=== PATIENT | female | born 1985 | race Two or more races ===

== ENCOUNTER 2016-12-06 17:21 | Observation (INO) | payer SELFPAY ==
[2016-12-06] MEDS ORDERED: IV RINGERS,LACTATED 1000ML 1,000 ML IV SCH ×2 (18:23)
[2016-12-10] MEDS ORDERED: NAPR500T PO (07:59)
[2016-12-10] MEDS ORDERED: HYDR-971 PO (07:59)
== END 2016-12-06 18:45 | disposition home or self-care (01) ==
LOC: 3 SO LND 17:21
PROVIDERS: ADMIT Obstetrics & Gynecology; ATTEND Obstetrics & Gynecology
DX: O26.893 Other specified pregnancy related conditions, third trimester (principal); N89.8 Other specified noninflammatory disorders of vagina; O62.9 Abnormality of forces of labor, unspecified; Z3A.39 39 weeks gestation of pregnancy
CPT/HCPCS: G0378; G0379

== ENCOUNTER 2016-12-08 01:59 | Inpatient (IN) | payer SELFPAY ==
[~2016-12-08] VITALS: Ht 144.8 cm; Wt 79.8 kg
[2016-12-08] MEDS ORDERED: ONDANSETRON PF 4 MG/2 ML VIAL. IV PRN ×2 (02:15→04:00)
[2016-12-08] MEDS ORDERED: 0.9 % SODIUM CHLORIDE 10 ML DISP.SYRIN. IV PRN ×2 (02:15→07:00)
[2016-12-08] MEDS ORDERED: OXYTOCIN 30 UNIT/500 ML PREMIX 500 ML IV PRN ×2 (02:15→07:00)
[2016-12-08] MEDS ORDERED: FENTANYL PF 100 MCG/2 ML VIAL. IV PRN (02:15)
[2016-12-08] MEDS ORDERED: LIDOCAINE 1% PF 30 ML VIAL. INJ PRN (02:15)
[2016-12-08] MEDS ORDERED: TERBUTALINE 1 MG/ML VIAL. SQ PRN (02:15)
[2016-12-08] MEDS: IV RINGERS,LACTATED 1000ML 1,000 ML IV SCH ×2 (02:41→04:22)
[2016-12-08 02:56] LABS: HEMOGLOBIN 12.1 g/dL (12.0-15.5); RED BLOOD COUNT 4.36 x10^6/uL (3.50-5.40); RED CELL DISTRIBUTION WIDTH 13.8 % (11.5-14.5)
[2016-12-08 03:03] VITALS: BP 119/76
[2016-12-08] MEDS ORDERED: L&D EPIDURAL CASSETTE 100 ML EP ONE (03:34)
[2016-12-08] MEDS ORDERED: ROPIVacaine 0.2% IN 0.9%NACL PF 40 MG/20 ML DISP.SYRIN. ONE (03:34)
[2016-12-08] MEDS ORDERED: NALOXONE 0.4 MG/ML VIAL. IV PRN (04:00)
[2016-12-08] MEDS ORDERED: EPHEDRINE PF IN SALINE 50 MG/5 ML DISP.SYRIN. IV PRN (04:00)
[2016-12-08] MEDS ORDERED: FENTANYL PF 100 MCG/2 ML VIAL. EPI ONE (04:30)
[2016-12-08] MEDS ORDERED: ROPIVacaine 0.2% PF 10 ML VIAL. EPI ONE (04:30)
--- NOTE | 2016-12-08 04:33 | PDOC1 ---
OB - History Hx of Present Care: Good Care Ultrasounds: Normal mid trimester US Obstetrical Complications: None Medical Complications: None Past Family/Social History * Past Medical, Surgical, Family and Obstetric Histories reviewed from chart. Rubella: Immune RPR/VDRL: Negative GBS Status: Negative HBsAG: Negative OB - Chief Complaint & HPI Date of Admission: Date of Admission: Dec 08, 2016 at 01:59 Chief Complaint/History : 3 Para: 2 EGA: 40 Reason for admission: active labor Admission Nurse Assessment Rev: Yes Problems: OB - Admission Exam Physical Exam Vitals: VS - Last 72 Hours, by Label Date Time Temp Pulse Resp B/P Pulse Ox O2 Delivery O2 Flow Rate FiO2 12/08/16 03:55 18 Room Air 12/08/16 03:03 98.0 67 20 119/76 Room Air 98.0 HEENT: Normal Heart: Regular Rate Lungs: Clear Abdomen: Gravid, Non tender, Soft Extremities: Edema Reflexes: Normal Cervical Dilatation: 4cm Effacement: 75% Station: -2 Membranes: Intact Heart Rate: Normal Accelerations: Accelerations Present Decelerations: No decelerations Contractions on Admission: 6-10 Minutes Apart Intensity: Moderate Text A: 40 wks IUP Active labor P: Admit for labor management. RAHUL VIEIRA Jr, MD Dec 08, 2016 04:33
[2016-12-08] MEDS ORDERED: ACETAMINOPHEN 325 MG TABLET. PO PRN (07:00)
[2016-12-08] MEDS ORDERED: SIMETHICONE 80 MG TAB.CHEW PO PRN (07:00)
[2016-12-08] MEDS ORDERED: PHENYLEPH/MINERAL OIL/PETROLAT RECTAL OINTMENT 28GM TUBE. RC PRN (07:00)
[2016-12-08] MEDS ORDERED: MAG HYDROX/ALUMINUM HYDROX/SMC 30 ML ORAL.SUSP PO PRN (07:00)
[2016-12-08] MEDS ORDERED: MAGNESIUM HYDROXIDE 2,400 MG/30 ML ORAL.SUSP. PO PRN (07:00)
[2016-12-08] MEDS ORDERED: ZOLPIDEM 5 MG TABLET. PO PRN (07:00)
[2016-12-08] MEDS ORDERED: BENZOCAINE 20% TOPICAL AEROSOL SPRAY 57GM CAN. TP PRN (07:00)
[2016-12-08] MEDS ORDERED: DIPHENHYDRAMINE HCL 25 MG CAPSULE PO PRN (07:00)
[2016-12-08] MEDS ORDERED: HYDROCORTISONE 1% TOPICAL OINTMENT 30GM TUBE. TP PRN (07:00)
[2016-12-08] MEDS ORDERED: FERROUS SULFATE 325 MG TABLET PO SCH (08:00)
[2016-12-08 09:55] VITALS: BP 97/56
[2016-12-08 10:55] VITALS: BP 97/55
[2016-12-08] MEDS ORDERED: PNV1TABL25 PO (13:44)
[2016-12-08] MEDS: IBUPROFEN 800 MG TABLET. PO SCH (15:06)
[2016-12-08 15:30] VITALS: BP 99/56
[2016-12-08] MEDS: HYDROCODONE/APAP 5/325MG TABLET. PO PRN (21:12)
[2016-12-08 23:10] VITALS: BP 100/58
[2016-12-09 02:02] VITALS: BP 119/74
[2016-12-09] MEDS: IBUPROFEN 600 MG TABLET. PO PRN (05:11)
[2016-12-09] MEDS: HYDROCODONE/APAP 5/325MG TABLET. PO PRN ×2 (05:11→21:43)
[2016-12-09 06:20] VITALS: BP 112/65
[2016-12-09 11:28] VITALS: BP 109/67
--- NOTE | 2016-12-09 13:24 | PDOC ---
OB Progress Note Date of Service 12/09/16 Time of Evaluation 1320 Notes PT. feeling well. No complaints. Lab Laboratory Tests Test 12/08/16 02:40 12/09/16 04:12 White Blood Count 12.0x10^3/uL (4.0-11.0) Red Blood Count 4.36x10^6/uL (3.50-5.40) Hemoglobin 12.1g/dL (12.0-15.5) Hematocrit 37.0% (36.0-47.0) 33.3% (36.0-47.0) Mean Corpuscular Volume 85fL (79-100) Mean Corpuscular Hemoglobin 28pg (25-35) Mean Corpuscular Hemoglobin Concent 33g/dL (31-37) Red Cell Distribution Width 13.8% (11.5-14.5) Platelet Count 252x10^3/uL (140-400) RPR Titer Additional Testing Non reactive (Non Reactive) Laboratory Tests Test 12/09/16 04:12 Hematocrit 33.3% (36.0-47.0) Medications Current Medications Sodium Chloride 3 ml 3 ml QSHIFT PRN IV AFTER MEDS AND BLOOD DRAWS; Start 12/08 at 02:15; Stop 12/08/16 at 08:11; Status DC Lactated Ringer's (Iv Lactated Ringers) 1,000 ml @ 125 mls/hr Q8H IV Last administered on 12/08/16t 04:22; Start 12/08/16 at 02:09 Fentanyl Citrate (Fentanyl 2ml Vial) 100 mcg PRN Q30MIN PRN IV Severe pain; Start 12/08/16 at 02:15; Stop 12/08/16 at 08:11; Status DC Ondansetron HCl (Zofran) 4 mg PRN Q4HRS PRN IV NAUSEA/VOMITING; Start 12/08/16 at 02:15; Stop 12/08/16 at 08:11; Status DC Terbutaline Sulfate (Brethine) 0.25 mg 1X PRN PRN SQ SEE COMMENTS; Start at 02:15; Stop 12/08/16 at 08:11; Status DC Lidocaine HCl 30 ml 30 ml 1X PRN PRN INJ SEE COMMENTS; Start 12/08/16 at 02:15 ; Stop 12/08/16 at 08:11; Status DC Oxytocin/Sodium Chloride (Oxytocin Premix Infusion) 500 ml @ 0 mls/hr CONT PRN PRN IV Post delivery bleeding Last administered on 12/08/16 06:27; Start at 02:15 Ibuprofen 600 mg 600 mg PRN Q6HRS PRN PO MODERATE PAIN Last administered on 05:11; Start 12/08/16 at 02:15 Ropivacaine/ Fentanyl/NS (Ouwsrmhy-Ttjmh-QH 3 Mcg-0.1%) 100 ml @ As Directed STK-MED ONCE EP Last administered on 12/08/16 03:55; Start 12/08/16 at 03:34; Stop 12/08/16 at 08:11; Status DC Ropivacaine 40 mg STK-MED ONCE .ROUTE Last administered on 12/08/16 03:55; Start 12/08/16 at 03:34; Stop 12/08/16 at 08:11; Status DC Ephedrine Sulfate 10 mg PRN Q2MIN PRN IV IF SBP<90; Start 12/08/16 at 04:00; Stop 12/08/16 at 08:11; Status DC Naloxone HCl (Narcan) 0.04 mg PRN Q1MIN PRN IV SEE COMMENTS; Start 12/08/16 at 04:00; Stop 12/08/16 at 08:11; Status DC Fentanyl Citrate (Fentanyl 2ml Vial) 100 mcg 1X ONCE EPI ; Start 12/08/16 at 04 :30; Stop 12/08/16 at 08:11; Status DC Ondansetron HCl (Zofran) 4 mg PRN Q6HRS PRN IV NAUSEA/VOMITING; Start 12/08/16 at 04:00 Ropivacaine (Naropin 0.2%) 20 ml 1X ONCE EPI ; Start 12/08/16 at 04:30; Stop at 08:11; Status DC Sodium Chloride 10 ml 10 ml QSHIFT PRN IV AFTER MEDS AND BLOOD DRAWS; Start at 07:00 Oxytocin/Sodium Chloride (Oxytocin Premix Infusion) 500 ml @ 62.5 mls/hr CONT PRN IV SEE I/O RECORD; Start 12/08/16 at 07:00; Stop 12/08/16 at 14:59; Status DC Acetaminophen (Tylenol) 650 mg PRN Q6HRS PRN PO MILD PAIN / TEMP; Start at 07:00 Ibuprofen (Motrin) 800 mg Q8HRS PO Last administered on 12/08/16 15:06; Start 12/08/16 at 14:00 Magnesium Hydroxide (Milk Of Magnesia) 2,400 mg PRN DAILY PRN PO CONSTIPATION; Start 12/08/16 at 07:00 Al Hydrox/Mg Hydrox/Simethicone (Mylanta Plus Xs) 30 ml PRN Q4HRS PRN PO HEARTBURN / GAS; Start 12/08/16 at 07:00 Simethicone (Gas-X) 80 mg PRN AFTMEALHC PRN PO GAS / BLOATING; Start 12/08/16 at 07:00 Diphenhydramine HCl (Benadryl) 25 mg PRN Q6HRS PRN PO ITCHING Last administered on 12/08/16 07:36; Start 12/08/16 at 07:00 Benzocaine (Americaine) 1 spray PRN QID PRN TP TOPICAL PAIN; Start 12/08/16 at 07:00 Phenyleph/Shark Oil/Min Oil/Petrol (Preparation H) 1 bren PRN QID PRN RC RECTAL PAIN; Start 12/08/16 at 07:00 Hydrocortisone (Cortaid) 1 bren PRN QID PRN TP RECTAL PAIN; Start 12/08/16 at 07 :00 Ferrous Sulfate (Feosol) 325 mg BIDWMEALS PO ; Start 12/08/16 at 08:00; Stop at 07:21; Status DC Zolpidem Tartrate (Ambien) 5 mg PRN QHS PRN PO INSOMNIA, MAY REPEAT X1; Start 12/08/16 at 07:00 Info (Do NOT chart on this placeholder) 1 ea 1X PRN PRN MC SEE COMMENTS; Start 12/08/16 at 07:00 Acetaminophen/ Hydrocodone Bitart (Lortab 5/325) 1 tab PRN Q4HRS PRN PO MODERATE PAIN Last administered on 12/09/16 05:11; Start 12/08/16 at 07:00 Active Scripts Active Reported Tablet (Pnv Cmb#95/Ferrous Fumarate/Fa) 1 Each Tablet 1 Tab PO DAILY Exam Abd: soft, non tender, fundus firm Assessment PPD#1 s/p Plan of Care: Continue current Tx, Mgmt RAHUL VIEIRA Jr, MD Dec 09, 2016 13:24
[2016-12-09] MEDS: IBUPROFEN 800 MG TABLET. PO SCH (16:44)
[2016-12-09 23:11] VITALS: BP 128/74
[2016-12-10] MEDS: IBUPROFEN 600 MG TABLET. PO PRN (04:53)
[2016-12-10 06:11] VITALS: BP 119/80
--- NOTE | 2016-12-10 07:58 | PDOC ---
VAGINAL DELIVERY DATE DATE: 12/10/16 TIME: 07:56 : 3 Para: 2 EDC: Dec 07, 2016 VAGINAL DELIVERY: VTX VACCUM ASSISTED: Yes PLACENTA: Spontaneous 8/9/ WEIGHT Weight [ ] Nuchal Cord: No Amniotic Fluid: Clear PAIN: Natural EPISIOTOMY: No EXTENSION: No EBL cc COMPLICATIONS None CONDITION Stable Signs of Intrauterine Infectio: None Shoulder Dystocia: No DIAGNOSIS TIUP del Problems: ADELINA NOLAN MD Dec 10, 2016 07:58
[2016-12-10] MEDS ORDERED: HYDR-971 PO (07:59)
[2016-12-10] MEDS ORDERED: NAPR500T PO (07:59)
--- NOTE | 2016-12-10 08:00 | PDOC3 ---
OB DISCHARGE SUMMARY DATE OF ADMISSION: 12/08/16 DATE OF DISCHARGE: 12/10/16 REASON FOR ADMISSION: Onset of labor PROCEDURES: Ultrasound INTRAPARTUM PROCEDURES: Spontanous Vag Deliv PROCEDURES: None OPERATIONS: None DISCHARGE DIAGNOSIS: Term Delivered DISCHARGE INFORMATION: Activity, Diet HOSPITAL COURSE Unremarkable CONDITION AT DISCHARGE Stable ADELINA NOLAN MD Dec 10, 2016 08:00
[2016-12-10 13:05] VITALS: BP 122/78
[2016-12-10 18:23] VITALS: BP 126/74
== END 2016-12-10 18:26 | disposition home or self-care (01) | DRG 775 ==
LOC: 3 SO LND 01:59 → OBSVTOIN 01:59 → 3 NORTH 09:45
PROVIDERS: ADMIT Specialist; ATTEND Specialist
PROC: 10D07Z6 Extraction of Products of Conception, Vacuum, Via Natural or Artificial Opening (ICD-10-PCS; principal; 2016-12-10)
DX: O80 Encounter for full-term uncomplicated delivery (principal); Z37.0 Single live birth; Z3A.40 40 weeks gestation of pregnancy
CPT/HCPCS: 36415; 85014; 85027; 86593; 86850; 86900; 86901; G0378; J2590; J2795; J7120; Q0163

== ENCOUNTER 2017-08-28 21:56 | Emergency (ER) | payer SELFPAY ==
[~2017-08-28] VITALS: Ht 162.6 cm; Wt 68.0 kg
[~2017-08-28 21:56] MED LIST: HYDR-971 PO; NAPR500T PO; PNV1TABL25 PO
--- NOTE | 2017-08-28 22:21 | PHYS DOC ---
Past Medical History Past Medical History: No Pertinent History Past Surgical History: No Surgical History Alcohol Use: None Drug Use: None Adult General Chief Complaint Chief Complaint: EARACHE/EAR PAIN [facility] HPI Patient is a 32 year old female presents to the emergency department stating that she's had a headache and blurred vision for the last few days. She states she developed a headache in which she heard a pop in her head on Thursday. Patient denies any fever, chills or nausea or vomiting however she does complain of headache pain blurred vision and ear pain. Patient states her last menstrual cycle was approximately 9 months ago she denies any possibility of being . Patient states that she has taken Tylenol for the pain and discomfort last night with minimal relief. Patient continues to state to the division field inspector line out of she was also having some chest pain and discomfort, also complained of lightheadedness and dizziness for the last 2 weeks. Denies any recent falls trauma or any injury to the head. Review of Systems Review of Systems Constitutional: Denies fever or chills [] Eyes: Blurred vision, redness, or eye pain [] HENT: Denies nasal congestion or sore throat [] Respiratory: Denies cough or shortness of breath [] Cardiovascular: No additional information not addressed in HPI [] GI: Denies abdominal pain, nausea, vomiting, bloody stools or diarrhea [] : Denies dysuria or hematuria [] Musculoskeletal: Denies back pain or joint pain [] Integument: Denies rash or skin lesions [] Neurologic: headache, denies focal weakness or sensory changes [] Endocrine: Denies polyuria or polydipsia [] All other systems were reviewed and found to be within normal limits, except as documented in this note. Current Medications Current Medications Current Medications Medications (Trade) Dose Ordered Sig/Randy Start Time Stop Time Status Last Admin Dose Admin Acetaminophen (Tylenol) 650 mg 1X ONCE 08/28/17 23:45 08/28/17 23:46 DC 08/28/17 23:43 650 MG Meclizine HCl (Antivert) 25 mg 1X ONCE 08/28/17 23:00 08/28/17 23:01 DC 08/28/17 22:56 25 MG Metoclopramide HCl (Reglan) 10 mg 1X ONCE 08/28/17 23:45 08/28/17 23:46 DC 08/28/17 23:43 10 MG Allergies Allergies Allergies Coded Allergies Type Severity Reaction Last Updated Verified No Known Drug Allergies 12/08/16 No Physical Exam Physical Exam Constitutional: Well developed, well nourished, diaphoretic HENT: Normocephalic, atraumatic, bilateral external ears normal, oropharynx moist, no oral exudates, nose normal. Bilateral tympanic membranes appear to be normal. Frontal and maxillary sinus tenderness noted. Eyes: PERRLA, EOMI, conjunctiva red, no discharge. [] Neck: Normal range of motion, no tenderness, supple, no stridor. [] Cardiovascular:Heart rate regular rhythm, no murmur [] Lungs & Thorax: Bilateral breath sounds clear to auscultation [] Skin: Warm, dry, no erythema, no rash. [] Extremities: No tenderness, no cyanosis, no clubbing, ROM intact, no edema. [] Neurologic: Alert and oriented X 3, normal motor function, normal sensory function, no focal deficits noted. Patient was having increased difficulty through the division field inspector line with the instructions to touch her nose with her finger and touch the provider's finger. Patient was also noted to have nystagmus.[] Psychologic: Affect normal, judgement normal, mood normal. [] Current Patient Data Vital Signs Vital Signs Date Time Temp Pulse Resp B/P (MAP) Pulse Ox O2 Delivery O2 Flow Rate FiO2 08/28/17 23:42 77 18 120/71 (87) 97 Room Air 08/28/17 22:03 99.2 99.2 Lab Values Laboratory Tests Test 08/28/17 22:29 08/28/17 22:36 08/28/17 22:40 POC Urine HCG, Qualitative Hcg negative (Negative) White Blood Count 10.6 x10^3/uL (4.0-11.0) Red Blood Count 5.08 x10^6/uL (3.50-5.40) Hemoglobin 14.0 g/dL (12.0-15.5) Hematocrit 41.6 % (36.0-47.0) Mean Corpuscular Volume 82 fL (79-100) Mean Corpuscular Hemoglobin 28 pg (25-35) Mean Corpuscular Hemoglobin Concent 34 g/dL (31-37) Red Cell Distribution Width 13.9 % (11.5-14.5) Platelet Count 267 x10^3/uL (140-400) Neutrophils (%) (Auto) 73 % (31-73) Lymphocytes (%) (Auto) 19 % (24-48) L Monocytes (%) (Auto) 6 % (0-9) Eosinophils (%) (Auto) 2 % (0-3) Basophils (%) (Auto) 1 % (0-3) Neutrophils # (Auto) 7.7 x10^3uL (1.8-7.7) Lymphocytes # (Auto) 2.0 x10^3/uL (1.0-4.8) Monocytes # (Auto) 0.6 x10^3/uL (0.0-1.1) Eosinophils # (Auto) 0.2 x10^3/uL (0.0-0.7) Basophils # (Auto) 0.0 x10^3/uL (0.0-0.2) Urine Collection Type Unknown Urine Color Yellow Urine Clarity Clear Urine pH 6.0 Urine Specific [place] 1.010 Urine Protein Negative mg/dL (NEG-TRACE) Urine Glucose (UA) Negative mg/dL (NEG) Urine Ketones (Stick) Negative mg/dL (NEG) Urine Blood Moderate (NEG) Urine Nitrite Negative (NEG) Urine Bilirubin Negative (NEG) Urine Urobilinogen Dipstick 0.2 mg/dL (0.2 mg/dL) Urine Leukocyte Esterase Negative (NEG) Urine RBC Occ /HPF (0-2) Urine WBC 0 /HPF (0-4) Urine Squamous Epithelial Cells Few /LPF Urine Bacteria Few /HPF (0-FEW) Urine Mucus Slight /LPF Sodium Level 138 mmol/L (136-145) Potassium Level 3.5 mmol/L (3.5-5.1) Chloride Level 104 mmol/L (98-107) Carbon Dioxide Level 24 mmol/L (21-32) Anion Gap 10 (6-14) Blood Urea Nitrogen 19 mg/dL (7-20) Creatinine 0.7 mg/dL (0.6-1.0) Estimated GFR (Cockcroft-Gault) 97.0 BUN/Creatinine Ratio 27 (6-20) H Glucose Level 107 mg/dL (70-99) H Calcium Level 8.8 mg/dL (8.5-10.1) Total Bilirubin 0.4 mg/dL (0.2-1.0) Aspartate Amino Transferase (AST) 27 U/L (15-37) Alanine Aminotransferase (ALT) 39 U/L (14-59) Alkaline Phosphatase 122 U/L (46-116) H Total Protein 7.9 g/dL (6.4-8.2) Albumin 3.8 g/dL (3.4-5.0) Albumin/Globulin Ratio 0.9 (1.0-1.7) L Urine Opiates Screen Neg (NEG) Urine Methadone Screen Neg (NEG) Urine Barbiturates Neg (NEG) Urine Phencyclidine Screen Neg (NEG) Urine Amphetamine/Methamphetamine Neg (NEG) Urine Benzodiazepines Screen Neg (NEG) Urine Cocaine Screen Neg (NEG) Urine Cannabinoids Screen Neg (NEG) Urine Ethyl Alcohol Neg (NEG) Lactic Acid Level 0.7 mmol/L (0.4-2.0) Laboratory Tests 08/28/17 22:36 Laboratory Tests 08/28/17 22:36 EKG EKG [] Radiology/Procedures Radiology/Procedures [facility] [address] [place], [place] [id number] IMAGING REPORT Signed PATIENT: LIONEL GE ACCOUNT: [id number] : 1985 LOCATION: ER AGE: 32 SEX: F EXAM STATUS: REG ER ORD. PHYSICIAN: CHING WARNER APRN REASON: head ache blurred vision heard something pop in her head PROCEDURE: CT HEAD WO CONTRAST CT scan of the head without contrast 08/28/2017 Clinical History: Blurred vision. Dizziness and headaches. Technique: Unenhanced, contiguous, 5 mm axial sections were obtained through the head. One or more of the following individualized dose reduction techniques were utilized for this study: 1. Automated exposure control. 2. Adjustment of the mA and/or kV according to patient size. 3. Use of iterative reconstruction technique. Findings: The ventricles and sulci are within normal limits in size and configuration. No focal area of abnormal attenuation is seen involving the brain parenchyma. No extra-axial fluid collection is seen. No skull fracture is seen. Impression: Negative study. Electronically signed by: Samson Lee MD (08/28/2017 11:47 PM) [facility] DICTATED and SIGNED BY: SAMSON LEE MD DATE: 08/28/17 9036 CC: YESSY GUERRA; CHING WARNER APRN ~ [] Course & Med Decision Making Course & Med Decision Making Pertinent Labs and Imaging studies reviewed. (See chart for details) Patient was provided with her lab results, CT results with all labs being negative. Patient had been provided with a liter of normal saline, Reglan, Tylenol, and meclizine. Patient states that her headache is completely gone. Patient's neurological status 2 through 12 is intact at this time. No nystagmus noted. Patient will be discharged home with amoxicillin for sinusitis infection and she did have tenderness along the frontal maxillary sinus. She was instructed to take Tylenol or ibuprofen for pain and discomfort. She was recommended to also drink plenty of fluids. All instructions were provided to the patient through the division field inspector line and she is Lao-speaking only. The patient presented to the emergency part with headache. The patient is now resting comfortably and feels better, is awake, talkative, interactive, and in no acute distress. The patient appears well and is able to tolerate by mouth fluids and medications. Repeat evaluation is unremarkable without any specific neurologic findings. The patient is neurologically intact, has normal mental status, and is ambulatory in the ED. The history, exam, and any diagnostic testing completed in the ED (if any) and the patient's current condition do not suggest meningitis, stroke, sepsis, subarachnoid hemorrhage, intracranial bleed , encephalitis, temporal arteritis, or other significant pathology warranting further testing and continue treatment in the ED. At this point I do not believe admission or neurologic consultation or other specialist evaluation are needed at this point. The patient's vital signs have been stabilized. Patient' s condition is stable and appropriate for discharge. The patient will pursue further up and evaluation with primary care and other designated resources or consulting physicians as indicated in the discharge instructions.] Juliocesar Disclaimer Dragon Disclaimer This electronic medical record was generated, in whole or in part, using a voice recognition dictation system. Departure Departure Impression: Primary Impression: Headache Additional Impression: Sinusitis Disposition: 01 HOME, SELF-CARE Condition: STABLE Referrals: YESSY GUERRA (PCP) Patient Instructions: General Headache Without Cause, [id number], Sinusitis, [id number] Additional Instructions: Activity as tolerated. Medications as prescribed. Tylenol or ibuprofen for fever chills or generalized body aches and discomfort. Treatment plan fluids. Follow-up through primary care physician in the next 3-5 days. Return back to emergency department signs and symptoms become worse. Scripts Amoxicillin (AMOXICILLIN) 500 Mg Capsule 1 CAP PO TID, #30 CAP Prov: CHING WARNER APRN 08/29/17 Problem Qualifiers Primary Impression: Headache Headache type: unspecified Headache chronicity pattern: unspecified pattern Intractability: not intractable Qualified Codes: R51 - Headache Additional Impression: Sinusitis Sinusitis location: unspecified location Chronicity: unspecified Qualified Codes: J32.9 - Chronic sinusitis, unspecified CHING WARNER CARBURETOR REPAIRER Aug 28, 2017 22:21
[2017-08-28 22:47] LABS: BASO % 1 % (0-3); EOS % 2 % (0-3); HEMATOCRIT 41.6 % (36.0-47.0); LYMPH % 19 % (24-48); MEAN CORPUSCULAR HEMOGLOBIN 28 pg (25-35); MEAN CORPUSCULAR HGB CONC 34 g/dL (31-37); MEAN CORPUSCULAR VOLUME 82 fL (79-100); MONO % 6 % (0-9); NEUT % 73 % (31-73); PLATELET COUNT 267 x10^3/uL (140-400); RED BLOOD COUNT 5.08 x10^6/uL (3.50-5.40); RED CELL DISTRIBUTION WIDTH 13.9 % (11.5-14.5); WHITE BLOOD COUNT 10.6 x10^3/uL (4.0-11.0)
[2017-08-28 23:00] LABS: CALCIUM 8.8 mg/dL (8.5-10.1); CREATININE 0.7 mg/dL (0.6-1.0); POTASSIUM 3.5 mmol/L (3.5-5.1)
[2017-08-28] MEDS ORDERED: MECLIZINE HCL 12.5 MG TABLET. PO ONE (23:00)
[2017-08-28 23:02] LABS: BILIRUBIN,URINE NEGATIVE (NEG); GLUCOSE,URINE NEGATIVE (NEG); NITRITE,URINE NEGATIVE (NEG); PROTEIN,URINE NEGATIVE (NEG-TRACE); UROBILINOGEN,URINE 0.2 mg/dL (0.2 mg/dL)
[2017-08-28 23:05] LABS: ALBUMIN 3.8 g/dL (3.4-5.0); ALBUMIN/GLOBULIN RATIO 0.9 (1.0-1.7); TOTAL BILIRUBIN 0.4 mg/dL (0.2-1.0); TOTAL PROTEIN 7.9 g/dL (6.4-8.2)
[2017-08-28 23:12] LABS: BACTERIA,URINE FEW /HPF (0-FEW); RBC,URINE OCC /HPF (0-2); SQUAMOUS EPITHELIAL CELL,UR FEW /LPF; WBC,URINE 0 /HPF (0-4)
[2017-08-28 23:15] LABS: BARBITURATES NEG (NEG); BENZODIAZEPINES NEG (NEG); CANNABINOIDS NEG (NEG); COCAINE NEG (NEG); METHADONE NEG (NEG); OPIATES NEG (NEG); PHENCYCLIDINE NEG (NEG)
[2017-08-28 23:42] VITALS: BP 120/71
[2017-08-28] MEDS ORDERED: ACETAMINOPHEN 325 MG TABLET. PO ONE (23:45)
[2017-08-28] MEDS ORDERED: METOCLOPRAMIDE HCL 10 MG/2 ML VIAL. IV ONE (23:45)
--- NOTE | 2017-08-28 23:50 | RAD ---
CT scan of the head without contrast 08/28/2017 Clinical History: Blurred vision. Dizziness and headaches. Technique: Unenhanced, contiguous, 5 mm axial sections were obtained through the head. One or more of the following individualized dose reduction techniques were utilized for this study: 1. Automated exposure control. 2. Adjustment of the mA and/or kV according to patient size. 3. Use of iterative reconstruction technique. Findings: The ventricles and sulci are within normal limits in size and configuration. No focal area of abnormal attenuation is seen involving the brain parenchyma. No extra-axial fluid collection is seen. No skull fracture is seen. Impression: Negative study. Electronically signed by: Samson Lee MD (08/28/2017 11:47 PM) [facility]
[2017-08-29] MEDS ORDERED: AMOX500C PO (00:04)
--- NOTE | 2017-08-29 08:03 | EKG ---
[facility] [address] [place] [address] Test Date: 2017-08-28 Test Time: 22:35:05 Pat Name: LIONEL GE Department: Room: Gender: F Restaurant Host: : 1985 Requested By: CHING WARNER Order Number: [id number] Reading MD: Emmanuel Ramirez MD Measurements Intervals [place] Rate: 85 P: 33 AL: 174 QRS: 34 QRSD: 84 T: 8 QT: 352 QTc: 424 Interpretive Statements SINUS RHYTHM NON SPECIFIC T ABNORMALITY Electronically Signed On 08-31-2017 10:13:35 TELEHEALTH CASE MANAGER by Emmanuel Ramirez MD
== END 2017-08-29 00:15 | disposition home or self-care (01) ==
LOC: ER 21:56
DX: J32.1 Chronic frontal sinusitis (principal); J32.0 Chronic maxillary sinusitis; R07.9 Chest pain, unspecified
CPT/HCPCS: 36415; 70450; 80053; 80307; 81001; 81025; 83605; 85025; 93005; 96374; 99285; J2765; J8597; G0479

== ENCOUNTER 2021-11-05 05:11 | Observation (INO) | payer SELFPAY ==
[2019-04-18 17:59] VITALS: BP 106/55
[~2021-11-05 05:11] MED LIST changes: +AMOX500C PO; +HYDR-3164 PO; -HYDR-971 PO; +NAPR-683 PO; -NAPR500T PO
[2021-11-05] MEDS ORDERED: IV RINGERS,LACTATED 1000ML 1,000 ML IV PRN (05:15)
[2021-11-05 07:23] LABS: BILIRUBIN,URINE NEGATIVE (NEG); CLARITY,URINE CLEAR; COLOR,URINE YELLOW; NITRITE,URINE NEGATIVE (NEG); PROTEIN,URINE NEGATIVE (NEG-TRACE); UROBILINOGEN,URINE 0.2 mg/dL (0.2 mg/dL)
[2021-11-05 07:43] LABS: BACTERIA,URINE FEW /HPF (0-FEW); RBC,URINE 0 /HPF (0-2)
== END 2021-11-05 05:59 | disposition home or self-care (01) ==
LOC: 3 SO LND 05:11
PROVIDERS: ADMIT Obstetrics & Gynecology; ATTEND Obstetrics & Gynecology
DX: O36.8130 Decreased fetal movements, third trimester, not applicable or unspecified (principal); O62.9 Abnormality of forces of labor, unspecified; Z3A.37 37 weeks gestation of pregnancy; Z79.899 Other long term (current) drug therapy
CPT/HCPCS: 59025; 81001; 87086; G0378; G0379; 87147

== ENCOUNTER → 2021-11-22 | Outpatient (CLI) | payer SELFPAY ==
[2019-04-18 17:59] VITALS: BP 106/55
== END ==
LOC: LAB 13:08
PROVIDERS: ATTEND Obstetrics & Gynecology
DX: Z01.812 Encounter for preprocedural laboratory examination (principal); Z20.822 Contact with and (suspected) exposure to COVID-19
CPT/HCPCS: U0003; U0005

== ENCOUNTER 2021-11-25 06:26 | Inpatient (IN) | payer SELFPAY ==
[~2021-11-25] VITALS: Ht 152.4 cm; Wt 86.8 kg
[2021-11-25] MEDS ORDERED: IV RINGERS,LACTATED 1000ML 1,000 ML IV SCH (06:30)
[2021-11-25] MEDS ORDERED: BUTORPHANOL 2 MG/ML VIAL. IVP PRN ×2 (06:30)
[2021-11-25] MEDS ORDERED: IBUPROFEN 400 MG TABLET. PO PRN (06:30)
[2021-11-25] MEDS ORDERED: TERBUTALINE 1 MG/ML VIAL. SQ PRN (06:30)
[2021-11-25] MEDS ORDERED: 0.9 % SODIUM CHLORIDE 10 ML DISP.SYRIN. IV PRN ×2 (06:30→14:00)
[2021-11-25] MEDS ORDERED: OXYTOCIN 30 UNIT/500 ML PREMIX 500 ML IV PRN ×3 (06:30→14:00)
[2021-11-25] MEDS ORDERED: LIDOCAINE 1% PF 30 ML VIAL. INJ PRN (06:30)
[2021-11-25] MEDS ORDERED: PENICILLIN G K 5,000,000 UNIT in IV DEXTROSE 5% 100ML 100 ML IV ONE (07:00)
[2021-11-25 07:08] LABS: BILIRUBIN,URINE NEGATIVE (NEG); CLARITY,URINE CLEAR; COLOR,URINE YELLOW; NITRITE,URINE NEGATIVE (NEG); PH,URINE 6.5 (<5.0-8.0); PROTEIN,URINE NEGATIVE (NEG-TRACE); UROBILINOGEN,URINE 0.2 mg/dL (0.2 mg/dL)
[2021-11-25 07:17] VITALS: BP 122/74
[2021-11-25 07:25] LABS: BACTERIA,URINE MODERATE /HPF (0-FEW); RBC,URINE OCC /HPF (0-2)
[2021-11-25 07:45] LABS: BASO % 1 % (0-3); EOS # 0.1 x10^3/uL (0.0-0.7); EOS % 2 % (0-3); HEMATOCRIT 35.6 % (36.0-47.0); LYMPH # 2.1 x10^3/uL (1.0-4.8); LYMPH % 28 % (24-48); MEAN CORPUSCULAR HEMOGLOBIN 28 pg (25-35); MEAN CORPUSCULAR HGB CONC 34 g/dL (31-37); MEAN CORPUSCULAR VOLUME 83 fL (79-100); MONO # 0.4 x10^3/uL (0.0-1.1); MONO % 6 % (0-9); NEUT # 4.8 x10^3/uL (1.8-7.7); NEUT % 64 % (31-73); PLATELET COUNT 218 x10^3/uL (140-400); RED CELL DISTRIBUTION WIDTH 14.7 % (11.5-14.5); WHITE BLOOD COUNT 7.4 x10^3/uL (4.0-11.0)
[2021-11-25] MEDS ORDERED: PENICILLIN G K 2,500,000 UNIT in IV DEXTROSE 5% 50 ML IV SCH (11:00)
--- NOTE | 2021-11-25 12:13 | PDOC1 ---
POWDER COAT PAINTER H&P Date of Admission: Date of Admission: Nov 25, 2021 at 06:26 History of Present Illness: EDC: 11/25/21 LMP: 02/03/21 36y @ 40.0 by 19wk u/s presents for scheduled indxn. The pt has had a relatively uncomplicated . PMH: Low back pain PSH: Denies Meds: PNV, ASA All: NKDA OBHx: TSVD x 4 SH: no tob, no EtOH FH: noncontributory Medications: Meds: Current Medications Medications (Trade) Dose Ordered Sig/Randy Route PRN Reason Start Time Stop Time Status Last Admin Dose Admin Ringer's Solution 1,000 ml @ 125 mls/hr Q8H IV 11/25/21 06:30 11/25/21 07:29 Oxytocin 500 ml @ 0 mls/hr CONT PRN IV SEE I/O RECORD 11/25/21 07:30 11/25/21 07:32 Penicillin G Potassium [id number] unit/Dextrose 100 ml @ 100 mls/hr 1X ONCE IV 11/25/21 07:00 11/25/21 07:59 DC 11/25/21 07:29 Penicillin G Potassium [id number] unit/Dextrose 50 ml @ 100 mls/hr Q4H IV 11/25/21 11:00 11/25/21 11:21 Allergies: Coded Allergies: No Known Drug Allergies (Unverified , 12/08/16) Physical Exam: Vital Signs: Vital Signs Date Time Temp Pulse Resp B/P (MAP) Pulse Ox O2 Delivery O2 Flow Rate FiO2 11/25/21 07:17 98.4 62 20 122/74 (90) Room Air 98.4 PE: GENERAL: No apparent distress. Alert and oriented. HEENT: Head normocephalic, atraumatic. NECK: Supple LUNGS: Clear to auscultation. HEART: RRR, S1, S2 present, pulses intact ABDOMEN: Soft, positive bowel sounds. EXTREMITIES: No cyanosis or edema. NEUROLOGIC: Normal speech, normal tone PSYCHIATRIC: Normal affect, normal mood. SKIN: No ulceration. FHT: 130s +acels/no decels/mLTV [place]: 2-3 min SVE: 3/50/-2 Labs: Laboratory Tests Test 11/25/21 06:50 11/25/21 07:25 Urine Collection Type Unknown Urine Color Yellow Urine Clarity Clear Urine pH 6.5 (<5.0-8.0) Urine Specific [place] <=1.005 (1.000-1.030) Urine Protein Negative mg/dL (NEG-TRACE) Urine Glucose (UA) Negative mg/dL (NEG) Urine Ketones (Stick) Negative mg/dL (NEG) Urine Blood Negative (NEG) Urine Nitrite Negative (NEG) Urine Bilirubin Negative (NEG) Urine Urobilinogen Dipstick 0.2 mg/dL (0.2 mg/dL) Urine Leukocyte Esterase Trace (NEG) Urine RBC Occ /HPF (0-2) Urine WBC 5-10 /HPF (0-4) Urine Squamous Epithelial Cells Many /LPF Urine Bacteria Moderate /HPF (0-FEW) White Blood Count 7.4 x10^3/uL (4.0-11.0) Red Blood Count 4.30 x10^6/uL (3.50-5.40) Hemoglobin 12.0 g/dL (12.0-15.5) Hematocrit 35.6 % (36.0-47.0) L Mean Corpuscular Volume 83 fL (79-100) Mean Corpuscular Hemoglobin 28 pg (25-35) Mean Corpuscular Hemoglobin Concent 34 g/dL (31-37) Red Cell Distribution Width 14.7 % (11.5-14.5) H Platelet Count 218 x10^3/uL (140-400) Neutrophils (%) (Auto) 64 % (31-73) Lymphocytes (%) (Auto) 28 % (24-48) Monocytes (%) (Auto) 6 % (0-9) Eosinophils (%) (Auto) 2 % (0-3) Basophils (%) (Auto) 1 % (0-3) Neutrophils # (Auto) 4.8 x10^3/uL (1.8-7.7) Lymphocytes # (Auto) 2.1 x10^3/uL (1.0-4.8) Monocytes # (Auto) 0.4 x10^3/uL (0.0-1.1) Eosinophils # (Auto) 0.1 x10^3/uL (0.0-0.7) Basophils # (Auto) 0.0 x10^3/uL (0.0-0.2) Treponema pallidum Antibody Nonreactive (Nonreactive) Laboratory Tests 11/25/21 07:25 Laboratory Tests 11/25/21 07:25 Assessment & Plan: A/P 36y @ 40.0 by 19wk u/s 1.) Indxn On Pit, AROM/cl 2.) Late presentation to care 3.) AFP pos - NIPT low risk 4.) AMA 5.) Anemia 6.) DPS - consent signed 09/25/21 7.) Elevated GTT - 0 of 4 values of the 3hr GTT elevated 8.) TDAP given 09/25/21 9.) Flu vaccine given 09/25/21 10.) Fetus cat I FHT 11.) GBS neg ROBERT RAMOS MD Nov 25, 2021 12:13
[2021-11-25] MEDS ORDERED: BENZOCAINE 20% TOPICAL AEROSOL SPRAY 57GM CAN. TP PRN (14:00)
[2021-11-25] MEDS ORDERED: ACETAMINOPHEN 325 MG TABLET. PO PRN (14:00)
[2021-11-25] MEDS ORDERED: TDaP (BOOSTRIX) per PROTOCOL. MC PRN (14:00)
[2021-11-25] MEDS ORDERED: oxyCODONE/APAP 5/325 1 TAB TABLET PO PRN (14:00)
[2021-11-25] MEDS ORDERED: ZOLPIDEM 5 MG TABLET. PO PRN (14:00)
[2021-11-25] MEDS ORDERED: diphenhydrAMINE HCL 25 MG CAPSULE PO PRN (14:00)
[2021-11-25] MEDS ORDERED: MAGNESIUM HYDROXIDE 2,400 MG/30 ML ORAL.SUSP. PO PRN (14:00)
[2021-11-25] MEDS ORDERED: SIMETHICONE 80 MG TAB.CHEW PO PRN (14:00)
[2021-11-25] MEDS ORDERED: PHENYLEPH/MINERAL OIL/PETROLAT RECTAL OINTMENT TUBE. RC PRN (14:00)
[2021-11-25] MEDS ORDERED: DOCUSATE SODIUM 100 MG CAPSULE. PO PRN (14:00)
[2021-11-25] MEDS ORDERED: MMR per PROTOCOL. MC PRN (14:00)
[2021-11-25] MEDS ORDERED: HYDROCORTISONE 1% TOPICAL OINTMENT 30GM TUBE. TP PRN (14:00)
[2021-11-25] MEDS ORDERED: MAG HYDROX/ALUMINUM HYD/SIMETH 30 ML ORAL.SUSP PO PRN (14:00)
[2021-11-25] MEDS: IBUPROFEN 400 MG TABLET. PO PRN (15:53)
--- NOTE | 2021-11-25 16:27 | PDOC4 ---
VAGINAL DELIVERY DATE DATE: 11/25/21 TIME: 16:26 TIME Patient delivered a viable male over intact perineum at 1345. Wt 7 lb 5.6 oz. Apgars 8/9. Placenta delivered spontaneously, intact with 3VC. No lacerations noted. Good hemostasis noted. 20 U of Pit given with IVF. EBL 100 cc. WEIGHT Weight [ ] ROBERT RAMOS MD Nov 25, 2021 16:27
--- NOTE | 2021-11-25 17:49 | NUR ---
Flying I Instructor services used for BTL consent, pt. changed mind and did not want to continue as scheduled. Dr. Gonzalez and nursing claims adjuster supervisor notified.
[2021-11-25 18:25] VITALS: BP 108/55
[2021-11-25 20:10] VITALS: BP 117/62
[2021-11-26 00:30] VITALS: BP 130/75
[2021-11-26] MEDS: IBUPROFEN 400 MG TABLET. PO PRN ×2 (00:37→08:08)
[2021-11-26 05:05] VITALS: BP 122/75
[2021-11-26 06:23] LABS: HEMATOCRIT 35.3 % (36.0-47.0); HEMOGLOBIN 11.7 g/dL (12.0-15.5); RED BLOOD COUNT 4.23 x10^6/uL (3.50-5.40); RED CELL DISTRIBUTION WIDTH 14.5 % (11.5-14.5); WHITE BLOOD COUNT 9.3 x10^3/uL (4.0-11.0)
[2021-11-26 08:00] VITALS: BP 116/75
[2021-11-26] MEDS ORDERED: FERROUS SULFATE 325 MG TABLET. PO SCH (08:00)
[2021-11-26] MEDS ORDERED: PRENATAL MULTIVITAMIN TABLET. PO SCH (09:00)
--- NOTE | 2021-11-26 14:18 | PDOC ---
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 Doing well. Tolerates diet, activity, and voiding with complaints. Pain well managed with PO meds. Desires d/c home today - no childcare for toddler. Otherwise denies complaints. Objective: Objective: FF @ U/1, scant lochia. Tr edema to bilateral LE. Vital Signs: Vital Signs Date Time Temp Pulse Resp B/P (MAP) Pulse Ox O2 Delivery O2 Flow Rate FiO2 11/25/21 07:17 98.4 62 20 122/74 (90) Room Air 98.4 11/25/21 20:10 99 Vital Signs Date Time Temp Pulse Resp B/P (MAP) Pulse Ox O2 Delivery O2 Flow Rate FiO2 11/26/21 08:00 97.9 72 20 116/75 (89) 97.9 11/26/21 05:05 99 11/25/21 20:10 Room Air Labs: Laboratory Tests Test 11/26/21 06:00 White Blood Count 9.3 x10^3/uL (4.0-11.0) Red Blood Count 4.23 x10^6/uL (3.50-5.40) Hemoglobin 11.7 g/dL (12.0-15.5) L Hematocrit 35.3 % (36.0-47.0) L Mean Corpuscular Volume 84 fL (79-100) Mean Corpuscular Hemoglobin 28 pg (25-35) Mean Corpuscular Hemoglobin Concent 33 g/dL (31-37) Red Cell Distribution Width 14.5 % (11.5-14.5) Platelet Count 203 x10^3/uL (140-400) Laboratory Tests 11/26/21 06:00 Laboratory Tests 11/26/21 06:00 Physical Exam: GENERAL: No apparent distress. Alert and oriented. HEENT: Head normocephalic, atraumatic. NECK: Supple LUNGS: Clear to auscultation. HEART: RRR, S1, S2 present, pulses intact ABDOMEN: Soft, positive bowel sounds. EXTREMITIES: No cyanosis or edema. NEUROLOGIC: Normal speech, normal tone PSYCHIATRIC: Normal affect, normal mood. SKIN: No ulceration. Assessment & Plan: D/C home in stable condition. Rx sent to pharmacy on chart. Reviewed discharge instructions to include pain/bleeding precautions, activity restriction. F/U 6 weeks for routine PP visit at [facility]. Agrees to call with questions/concerns. Otherwise denies complaints. SO BOSE CNM Nov 26, 2021 14:18
[2021-11-26] MEDS ORDERED: IBUP-1027 PO (14:20)
[2021-11-26 16:00] VITALS: BP 123/82
--- NOTE | 2021-11-26 16:00 | NUR ---
Pt. was given all verbal and written discharge instructions. Pt. verbalized understanding about all discharge instructions and follow up appointment. Pt. ambulates to unit exit as boarder status and signed boarder consent form.
--- NOTE | 2021-11-27 17:07 | PATHOLOGY ---
[facility] Accession Number: [id number] . 01 Material submitted: . placenta - PLACENTA AND CORD . 01 Clinical history: . BOY AT 13:45 ON 11/25/21 . 02 Diagnosis: 488 gram term placenta of an estimated 40 weeks gestation with attached membranes and umbilical cord: - Placental weight at approximate 45-50th percentile for estimated gestational age. - Eccentric insertion of umbilical cord. - Focally increased perivillous fibrin deposition. - Focal clustered avascular villi. - Villitis of unknown etiology, patchy. (ELISHA:india; 11/27/2021) [facility] 11/27/2021 1650 Local . 02 Comment: There is no evidence of an acute chorioamnionitis. (ELISHA:india; 11/27/2021) . 02 Electronically signed: . Preston Caldwell MD, Pathologist NPI- [id number] . 01 Gross description: . Fixative: Formalin Labeled: Placenta Specimen received: Intact Trimmed placental weight: 488 g Umbilical cord dimensions: 16.8 cm in length, ranging from 0.9 cm to 1.0 cm in diameter Umbilical cord insertion: Eccentrically, 5.5 cm from the nearest placental edge Number of umbilical vessels: 3 Umbilical cord appearance: Mace and focally edematous but otherwise unremarkable without a true or false knot present at the time of gross examination Placenta dimensions: 17.0 x 16.0 x 3.0 cm surface: Blue-purple, smooth with the usual arborizing vasculature Maternal surface: Red-brown, lobular and intact without evidence of disruption and with minimal adherent blood clot (less than 5%) Cut surfaces: Maroon and spongy Abnormalities: Displays a marginal pink-segura, fibrotic and hemorrhagic rubbery irregular lesion (2.0 x 1.5 x 1.0 cm) membranes: pink-mace, thin, cloudy, markedly slimy and edematous . Physician Locums Ur[facility] Care sections are submitted as follows: A1: Umbilical cord, represented A2: membranes, represented A3: Maternal surface to show adherent blood clot, represented A4-A5: Lesion, represented A6: Maternal surface, represented ([place]; 11/26/2021) DKA/DKA 11/26/2021 1638 Local . 02 Pathologist provided ICD-10: O43.893, Z37.0, Z3A.40 . 02 CPT . 945731 Specimen Comment: A courtesy copy of this report has been sent to [phone], [phone] Specimen Comment: [id number] Specimen Comment: Report sent to / DR GUERRA Performed at: 01 [facility] [address] [facility] [address], [place] [id number] MD Willis Huerta MD Phone: [phone] Performed at: 02 [facility] [address] [place], [place] [id number] MD Preston Caldwell MD Phone: [phone]
== END 2021-11-26 16:00 | disposition home or self-care (01) | DRG 807 ==
LOC: 3 SO LND 06:26
PROVIDERS: ADMIT Obstetrics & Gynecology; ATTEND Obstetrics & Gynecology
PROC: 10E0XZZ Delivery of Products of Conception, External Approach (ICD-10-PCS; principal; 2021-11-25)
PROC: 10907ZC Drainage of Amniotic Fluid, Therapeutic from Products of Conception, Via Natural or Artificial Opening (ICD-10-PCS; 2021-11-25)
PROC: 3E033VJ Introduction of Other Hormone into Peripheral Vein, Percutaneous Approach (ICD-10-PCS; 2021-11-25)
DX: O99.02 Anemia complicating childbirth (principal); Z37.0 Single live birth; Z3A.40 40 weeks gestation of pregnancy; Z20.822 Contact with and (suspected) exposure to COVID-19; D64.9 Anemia, unspecified
CPT/HCPCS: 36415; 81001; 85025; 85027; 86592; 86850; 86900; 86901; 87086; 88307; G0378; J0595; J2540; J2590; J7060; J7120